=== PATIENT | male | born 1940 | race Caucasian/White ===

== ENCOUNTER 2017-04-24 10:30 | Emergency (ER) | payer MEDICARE, OTHER ==
[~2017-04-24] VITALS: Ht 172.7 cm; Wt 90.9 kg
[~2017-04-24 10:30] MED LIST: ASPI-628 PO; AZU500 PO; FINA5TAB9 PO; FOLI1TAB18 PO; LISI2.5T PO; METO-386 PO; ZYL100 PO
[2017-04-24 10:37] VITALS: BP 126/77; PULSE 62; RESP 16; O2SAT 99
[2017-04-24 10:50] LABS: BASOPHILS % (AUTO) 0.2 % (0-3); EOSINOPHILS % (AUTO) 1.7 % (0-5); MONOCYTES % (AUTO) 10.6 % (4-12); Mean Corpuscular Hemoglobin 30.9 pg (27.0-35.0); Mean Corpuscular Volume 89.6 fL (81-100); NEUTROPHILS % (AUTO) 56.5 % (40-74); Platelet Count 166 bil/L (150-400)
--- NOTE | 2017-04-24 10:54 | ED.REPORT ---
HPI-Chest Pain 40 and Over Date of Service Apr 24, 2017 ED Provider: Navin Ramos DO Patient is a 77 year old male with a history of atrial fibrillation who presents to the ED after an episode of chest pain prior to arrival. Associated symptoms include diaphoresis and shortness of breath. The patient reports that the pain started while he was starting to walk after getting out of his car and lasted approximately 13 minutes. Patient states that the pain resolved once medics arrived. En route the patient was given ASA. He reports that he has been off Xaralto for two days since he is awaiting to have a procedure. The patient denies previous heart attack and hasn't had a stress test in the past few years. Nursing Notes Stated Complaint: CHEST PAIN Chief Complaint: Chest Pain Nursing Notes Reviewed: Yes Allergies: Coded Allergies: No Known Allergies (Unverified , 06/10/14) verified with patient! I am not able to click the button "yes" Scheduled Allopurinol (Allopurinol) 100 Mg Tablet 100 MG PO DAILY Aspirin (Aspir 81) 81 Mg Tablet.dr 81 MG PO DAILY Finasteride (Finasteride) 5 Mg Tablet 5 MG PO DAILY Folic Acid (Folic Acid) 1 Mg Tablet 1 MG PO DAILY Lisinopril (Lisinopril) 2.5 Mg Tablet 2.5 MG PO DAILY Metoprolol Succinate ER (Metoprolol Succinate ER) 25 Mg Tab.er.24h 25 MG PO BID Sulfasalazine (Sulfasalazine) 500 Mg Tablet 500 MG PO BID Scheduled PRN Nitroglycerin SL (Nitroglycerin SL) 0.4 Mg Tab.subl 0.4 MG SL Q5MIN PRN PRN For Chest Pain call 911 after using this medication General Time Seen by MD: 10:36 Chief Complaint Chest pain Hx Obtained From: Patient Arrived By: Ambulance Sudden in Onset?: Yes Onset Occurred: Just prior to arrival Symptom Duration: 1 - 15 minutes Location: : Chest right: Substernal Quality: Painful Radiation: : Does not radiate Severity: Current: No pain currently Severity: Maximum: Moderate Similar Sx Previous: No Past Medical History Past Medical History atrial fibrillation Smoking History Never Smoker Social History Other Social History: Good social support Ambulatory Status Independent Review of Systems Respiratory: Reports: Shortness of breath Cardiovascular: Reports: Chest pain, Palpitations Skin: Reports Diaphoresis Complete sys rev & neg: except as marked. Physical Exam Initial Vital Signs Vital Signs (First) Date Time Temp Pulse Resp B/P Pulse Ox O2 Delivery O2 Flow Rate FiO2 04/24/17 10:37 36.5 62 16 126/77 99 Room Air Initial VS: Reviewed General/Constitutional: Awake, Alert, No acute distress Respiratory / Chest: Atraumatic, Breath sounds NL, Breath sounds = bilat, No respiratory distress Cardiovascular: Heart rate NL, Regular rhythm, Heart sounds NL Abdomen: Atraumatic, Soft, Non-tender Lower Extremity / Pelvis / MS: Atraumatic, Full range of motion Skin: Atraumatic, Color NL, No rash, Warm, Dry Neurologic: Oriented X3, Speech NL Psychiatric: Affect NL, Mood NL Head / Eyes: Atraumatic, Normocephalic Interpretation & Diagnostics Lab Results Interpretation Result Diagram: 04/24/17 1030 04/24/17 1030 Test 04/24/17 10:30 04/24/17 12:43 White Blood Count 5.9th/mm3 (3.8-10.1) Red Blood Count 4.73mil/mm3 (4.40-5.80) Hemoglobin 14.6g/dL (13.8-17.2) Hematocrit 42.4% (41.0-50.0) Mean Corpuscular Volume 89.6fL (81-100) Mean Corpuscular Hemoglobin 30.9pg (27.0-35.0) Mean Corpuscular Hemoglobin Concent 34.4% (32.0-37.0) Red Cell Distribution Width 13.4% (12.3-15.4) Platelet Count 166bil/L (150-400) Neutrophils (%) (Auto) 56.5% (40-74) Lymphocytes (%) (Auto) 31.0% (14-46) Monocytes (%) (Auto) 10.6% (4-12) Eosinophils (%) (Auto) 1.7% (0-5) Basophils (%) (Auto) 0.2% (0-3) Sodium Level 140mEq/L (134-144) Potassium Level 4.2mEq/L (3.5-5.2) Chloride Level 101mEq/L (97-108) Carbon Dioxide Level 28mmol/L (18-29) Blood Urea Nitrogen 19mg/dL (8-27) Creatinine 1.22mg/dL (0.76-1.27) Estimat Glomerular Filtration Rate 61mL/min (>59) Glucose Level 78mg/dL (60-99) Calcium Level 9.3mg/dL (8.5-10.1) Magnesium Level 1.9mg/dL (1.6-2.6) Total Bilirubin 0.4mg/dL (0.0-1.2) Aspartate Amino Transf (AST/SGOT) 26U/L (0-50) Alanine Aminotransferase (ALT/SGPT) 24U/L (0-44) Alkaline Phosphatase 68U/L (25-160) Total Protein 7.1g/dL (6.4-8.4) Albumin 4.3g/dL (3.4-5.0) Troponin T < 0.010ug/L (0.0-0.011) ECG Interpretation ECG Interpretation: atrial fibrillation, rate 55 Time: 11:21 Interpreted by: ED physician X-Ray Chest Interpretation Chest Xray Interpretation: IMPRESSION: 1. No acute cardiopulmonary process is suspected. 2. Borderline cardiomegaly without overt heart failure. Dictated by: Brett Garay M.D. on 04/24/2017 at 10:08 Approved by: Brett Garay M.D. on 04/24/2017 at 10:09 Interpretation / Wet Read by: Interpret - Radiologist Re-Eval/Medical Decision Med Decision/Clinical Course Patient is concerning and rather risky from a coronary artery disease perspective. Discussed at length and strongly recommended that the patient be admitted for a cardiac stress test and inpatient workup. He adamantly declines this in lieu of going home. His primary cardiology office is contacted and the case is discussed with cardiology on-call. He recommends discharging with nitroglycerin as needed and following up in clinic. The patient has serial negative troponins and no recurrent pain. He has ambulated without any symptoms. He is given strict return and follow-up precautions including calling 911 with any recurrent chest pain, resuming his home medications including xarelto And calling his cardiology office today for a close follow-up appointment. Time of Eval: 12:20 Re-Evaluation/Progress Note: Discussed results and option of admit for cardiac stress test. Patient prefers to go home. Plan for repeat trop and pending discharge. Patient understands and agrees to plan. Time of Eval: 13:03 Re-Evaluation/Progress Note: Updated patient about continuing Xarelto and following up at the cardiology clinic outpatient. Time of Eval: 13:36 Re-Evaluation/Progress Note: Discussed results and plan for discharge. Patient understands and agrees to plan. All questions were addressed. 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 Mccarthy, who recommends the patient second trop, resume Xarelto, PRN nitro and she will see the patient in the clinic. Counseled Regarding: Diagnosis, Lab results, Need for follow-up, When/why to return to ED Discharge & Departure Primary Impression: Chest pain Chest pain type: unspecified Qualified Code: R07.9 - Chest pain, unspecified Disposition: Home Discharge Condition All VS Reviewed: Yes Condition: Stable Patient Instructions: Chest Pain (ED) Additional Instructions: Your chest X-ray and EKG were reassuring. I recommended admission for a cardiac stress test but you declined at this time. 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 Return to the emergency department if you develop any new or concerning symptoms including chest pain, shortness of breath, lightheadedness, sweatiness or worsening symptoms. Referrals: Grace Hinojosa DO (PCP) Sleam Attestation Portions of this note were transcribed by Yaz Hudson. I, Dr. Briseida Mesa personally performed the history, physical exam and medical decision-making; I reviewed and confirmed the accuracy of the information in the transcribed note. Signed by: Selam Roberts, 04/24/17 copies to: Grace Hinojosa Timothy S DO Apr 24, 2017 10:54 Kiki Hudson Apr 24, 2017 11:08
--- NOTE | 2017-04-24 11:11 | DRSVH ---
PROCEDURE: X-RAY CHEST ONE VIEW, PORTABLE ([id number]) INDICATIONS: Dysrhythmia. TECHNIQUE: One view of the chest was acquired. COMPARISON: None. FINDINGS: Surgical changes and devices: None. Lungs and pleura: Interstitial prominence at the left lung base probably represents mild scarring. N o focal consolidation, effusion, or pneumothorax is evident. Mediastinum: Mediastinal contours appear normal the heart is borderline enlarged. There is aortic a therosclerosis. Bones and chest wall: No suspicious bony lesions. There are degenerative changes of the shoulder an d spine. Overlying soft tissues appear unremarkable. IMPRESSION: 1. No acute cardiopulmonary process is suspected. 2. Borderline cardiomegaly without overt heart failure. Dictated by: Brett Garay M.D. on 04/24/2017 at 10:08 Approved by: Brett Garay M.D. on 04/24/2017 at 10:09
[2017-04-24 11:24] LABS: TROPONIN T 0.01 ug/L (0.0-0.011)
[2017-04-24 11:35] LABS: Magnesium 1.9 mg/dL (1.6-2.6)
[2017-04-24 12:34] VITALS: BP 115/62; PULSE 58; RESP 22; O2SAT 97
[2017-04-24] MEDS ORDERED: NITR0.4T38 SL (13:34)
[2017-04-24 13:49] VITALS: BP 114/58; PULSE 54; RESP 15; O2SAT 95
[2017-04-24 13:55] VITALS: BP 114/58; PULSE 60; RESP 16; O2SAT 98
== END 2017-04-24 13:56 | disposition home or self-care (01) ==
LOC: SED 10:30
DX: R07.2 Precordial pain (principal); R06.02 Shortness of breath; R61 Generalized hyperhidrosis; I48.91 Unspecified atrial fibrillation; Z79.82 Long term (current) use of aspirin